=== PATIENT | female | born 1985 | race Caucasian/White ===

== ENCOUNTER 2019-03-11 14:48 | Emergency (ER) | payer OTHER ==
--- NOTE | 2019-03-11 17:33 | Ultrasound Report ---
Reason: 5.5 weeks preg vag bleed Procedure Date: 03/11/2019 Accession Number: [id number] / [id number] Procedure: US - OB First Trimester CPT Code: FULL RESULT: EXAM: FIRST TRIMESTER OBSTETRIC ULTRASOUND (Less than 11 weeks) EXAM DATE: 03/11/2019 05:10 PM. CLINICAL HISTORY: Vaginal bleeding LMP: 01/30/2019. COMPARISONS: None. TECHNIQUE: Transabdominal and transvaginal ultrasound examination with static image documentation. CLINICAL DATES: EGA 5 weeks 5 days with ALBERTINA 11/06/2019 based on LMP. ASSESSMENT: Gestational Sac: Single intrauterine. Mean gestational sac diameter: 12.4 mm = 5 weeks 2 days. pole not yet seen. Cardiac activity not yet seen. Yolk sac: 3.3 mm. Amniotic fluid: Not accurately assessed at this gestational age. Early placenta: Not visible at this gestational age. Other: No perigestational fluid collection demonstrated. MATERNAL STRUCTURES: Uterus: Anteverted. Unremarkable. Cervix: Closed. Right Ovary/Adnexa: The ovary measures 4.4 x 2.1 x 3.3 cm, volume 15.3 cc. Unremarkable. Corpus luteum cyst. Left Ovary/Adnexa: The ovary measures 3.2 x 2.6 x 1.5 cm, volume 6.5 cc. Unremarkable. Free Fluid: None. Other: None. IMPRESSION: 1. Single intrauterine gestational sac with an identifiable yolk sac. A pole and cardiac activity are not yet seen. Suggest follow-up ultrasound in 7-10 days for reassessment of viability. RADIA
[2019-03-11 17:56] LABS: BASOPHILS # (AUTO) 0.1 10^3/uL (0.0-0.1); BASOPHILS % (AUTO) 1.5 %; EOSINOPHILS # (AUTO) 0.1 10^3/uL (0.0-0.7); EOSINOPHILS % (AUTO) 1.7 %; LYMPHOCYTES # (AUTO) 1.2 10^3/uL (1.5-3.5); LYMPHOCYTES % (AUTO) 21.6 %; MEAN CORPUSCULAR HEMOGLOBIN 29.7 pg (27.0-31.0); MEAN CORPUSCULAR VOLUME 89.9 fL (81.0-99.0); MEAN PLATELET VOLUME 8.2 fL (7.9-10.8); MONOCYTES # (AUTO) 0.3 10^3/uL (0.0-1.0); MONOCYTES % (AUTO) 4.7 %; NEUTROPHILS # (AUTO) 3.9 10^3/uL (1.5-6.6); NEUTROPHILS % (AUTO) 70.5 %; PLT - PLATELET COUNT 195 10^3/uL (130-450); RED BLOOD COUNT 5.05 10^6/uL (4.20-5.40); RED CELL DISTRIBUTION WIDTH 13.1 % (12.0-15.0); WHITE BLOOD COUNT 5.5 x10^3/uL (4.8-10.8)
[2019-03-11 18:00] LABS: HCG UR QUAL POSITIVE
--- NOTE | 2019-03-11 18:09 | ED Physician Documentation ---
PD HPI FEMALE - Stated complaint Stated Complaint: FEMALE /SENT BY - Chief complaint Chief Complaint: General - History obtained from History obtained from: Patient - History of Present Illness Timing - onset: Today Timing - duration: Days (1) Pain level max: 0 Pain level max: 0 Associated symptoms: Vaginal bleeding. 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 History: G (2), P (0) Recently seen: Not recently seen Review of Systems Constitutional: denies: Fever GI: denies: Vomiting, Diarrhea Skin: denies: Rash Musculoskeletal: denies: Neck pain, Back pain Neurologic: denies: Headache PD PAST MEDICAL HISTORY - Past Medical History Past Medical History: No - Allergies Allergies/Adverse Reactions: Allergies Allergy/AdvReac Type Severity Reaction Status Date / Time No Known Drug Allergies Allergy Verified 03/11/19 15:33 - Living Situation Living Arrangement: reports: At home - Social History Does the pt smoke?: No Does the pt have substance abuse?: No PD ED PE NORMAL - Vitals Vital signs reviewed: Yes - General General: Alert and oriented X 3, No acute distress, Well developed/nourished - HEENT HEENT: Moist mucous membranes - Neck Neck: Supple, no meningeal sign - Cardiac Cardiac: RRR - Respiratory Respiratory: No respiratory distress, Clear bilaterally - Abdomen Abdomen: Soft, Non tender, Non distended - Back Back: No CVA TTP - Derm Derm: Warm and dry - Neuro Neuro: Alert and oriented X 3 - Psych Psych: Normal mood, Normal affect Results - Vitals Vitals: Vital Signs - 24 hr 03/11/19 03/11/19 15:29 19:05 Temperature 36.6 C Heart Rate 77 82 Respiratory 16 16 Rate Blood Pressure 103/66 130/75 O2 Saturation 100 100 Oxygen O2 Source Room air - Labs Labs: Laboratory Tests 03/11/19 03/11/19 03/11/19 17:40 17:40 17:50 WBC 5.5 RBC 5.05 Hgb 15.0 Hct 45.4 MCV 89.9 MCH 29.7 MCHC 33.0 RDW 13.1 Plt Count 195 MPV 8.2 Neut # (Auto) 3.9 Lymph # (Auto) 1.2 L Story # (Auto) 0.3 Eos # (Auto) 0.1 Baso # (Auto) 0.1 Absolute Nucleated RBC 0.00 Nucleated RBC % 0.0 Sodium Potassium Chloride Carbon Dioxide Anion Gap BUN Creatinine Estimated GFR (MDRD) Glucose Calcium Total Bilirubin AST ALT Alkaline Phosphatase Total Protein Albumin Globulin Albumin/Globulin Ratio Lipase HCG, Quant Urine Color YELLOW Urine Clarity CLEAR Urine pH 5.5 Ur Specific [place] 1.010 1.010 Urine Protein NEGATIVE Urine Glucose (UA) NEGATIVE Urine Ketones NEGATIVE Urine Occult Blood LARGE H Urine Nitrite NEGATIVE Urine Bilirubin NEGATIVE Urine Urobilinogen 0.2 (NORMAL) Ur Leukocyte Esterase NEGATIVE Urine RBC 0-5 Urine WBC 0-3 Ur Squamous Epith Cells MOD Squamous H Urine Bacteria None Seen Ur Microscopic Review INDICATED Urine Culture Comments NOT INDICATED Urine HCG, Qual POSITIVE 03/11/19 03/11/19 17:50 17:50 WBC RBC Hgb Hct MCV MCH MCHC RDW Plt Count MPV Neut # (Auto) Lymph # (Auto) Story # (Auto) Eos # (Auto) Baso # (Auto) Absolute Nucleated RBC Nucleated RBC % Sodium 137 Potassium 3.7 Chloride 102 Carbon Dioxide 24 Anion Gap 11.0 BUN 9 Creatinine 0.6 Estimated GFR (MDRD) 115 Glucose 92 Calcium 9.2 Total Bilirubin 0.6 AST 16 ALT 14 Alkaline Phosphatase 40 L Total Protein 7.4 Albumin 4.5 Globulin 2.9 Albumin/Globulin Ratio 1.6 Lipase 48 HCG, Quant 05723.00 Urine Color Urine Clarity Urine pH Ur Specific [place] Urine Protein Urine Glucose (UA) Urine Ketones Urine Occult Blood Urine Nitrite Urine Bilirubin Urine Urobilinogen Ur Leukocyte Esterase Urine RBC Urine WBC Ur Squamous Epith Cells Urine Bacteria Ur Microscopic Review Urine Culture Comments Urine HCG, Qual - Rads (name of study) OB ultrasound Radiology: Prelim report reviewed, EMP read contemporaneously, See rad report (Single intrauterine gestational sac with an identifiable yolk sac. pole and cardiac activity are not seen. Suggest follow-up ultrasound in 7 to 10 days for reassessment of viability.) PD MEDICAL DECISION MAKING - ED course Complexity details: reviewed results, re-evaluated patient, considered differential, d/w patient ED course: 33-year-old female with a threatened . She is well-appearing, nontoxic. Afebrile. No acute lab abnormalities. We will follow-up with her doctor in approximately 3 days for repeat hCG. And likely repeat ultrasound in 7 to 10 days. Patient counseled regarding signs and symptoms for which I believe and urgent re-evaluation would be necessary. Patient with good understanding of and agreement to plan and is comfortable going home at this time This document was made in part using voice recognition software. While efforts are made to proofread this document, sound alike and grammatical errors may occur. Departure - Departure Disposition: 01 Home, Self Care Clinical Impression: Threatened Condition: Good Instructions: ED Miscarriage Poss Follow-Up: your,doctor in 3 days for repeat HCG [Other] Comments: Follow-up with your doctor in 3 days for repeat hCG. Your hCG is approximately 32,000 today. This will help us know if you are miscarrying or not. Forms: Activity restrictions Discharge Date/Time: 03/11/19 19:05
[2019-03-11 18:10] LABS: ALBUMIN 4.5 g/dL (3.2-5.5); ALBUMIN/GLOBULIN RATIO 1.6 (1.0-2.2); BILIRUBIN,TOTAL 0.6 mg/dL (0.2-1.0); CALCIUM 9.2 mg/dL (8.5-10.3); CREATININE 0.6 mg/dL (0.4-1.0); TOTAL PROTEIN 7.4 g/dL (6.7-8.2)
[2019-03-11 18:36] LABS: BILIRUBIN,URINE NEGATIVE (NEGATIVE); GLUCOSE, URINE (UA) NEGATIVE (NEGATIVE); KETONES,URINE (UA) NEGATIVE (NEGATIVE); LEUKOCYTE ESTERASE, URINE NEGATIVE (NEGATIVE); NITRITE,URINE NEGATIVE (NEGATIVE); OCCULT BLOOD,URINE LARGE (NEGATIVE); PH,URINE 5.5 PH (5.0-7.5); PROTEIN,URINE NEGATIVE (NEGATIVE); UROBILINOGEN,URINE 0.2 (NORMAL) E.U./dL (NORMAL)
[2019-03-11 18:37] LABS: CLARITY,URINE CLEAR (CLEAR)
[2019-03-11 18:40] LABS: BACTERIA,URINE None Seen /HPF (None Seen); RBC,URINE 0-5 /HPF (0-5); SQUAMOUS EPITHELIAL CELL,UR MOD Squamous (<= Few)
[2019-03-11 19:05] VITALS: BP 130/75
== END 2019-03-11 19:05 | disposition home or self-care (01) ==
LOC: ED 14:48
DX: O20.0 Threatened abortion (principal); Z3A.01 Less than 8 weeks gestation of pregnancy
CPT/HCPCS: 36415; 76801; 76817; 80053; 81001; 81003; 81025; 83690; 84702; 85025; 86900; 86901; 87086; 99283

== ENCOUNTER 2019-03-14 12:31 | Outpatient (CLI) | payer OTHER | END 2019-03-14 12:32 | disposition home or self-care (01) | LOC: LAB 12:31 | PROVIDERS: ATTEND Nurse Practitioner Obstetrics & Gynecology | DX: O20.0 Threatened abortion (principal) | CPT/HCPCS: 84702 ==

== ENCOUNTER 2019-03-18 10:37 | Outpatient (CLI) | payer OTHER ==
[2019-03-18 11:17] LABS: MUDS CUTOFF CONCENTRATIONS CUTOFF CONC BELOW:
[2019-03-18 11:26] LABS: BASOPHILS % (AUTO) 0.6 %; EOSINOPHILS # (AUTO) 0.1 10^3/uL (0.0-0.7); EOSINOPHILS % (AUTO) 1.4 %; LYMPHOCYTES % (AUTO) 21.3 %; MEAN CORPUSCULAR HEMOGLOBIN 29.7 pg (27.0-31.0); MEAN CORPUSCULAR HGB CONC 33.1 g/dL (32.0-36.0); MEAN CORPUSCULAR VOLUME 89.9 fL (81.0-99.0); MEAN PLATELET VOLUME 8.5 fL (7.9-10.8); MONOCYTES # (AUTO) 0.3 10^3/uL (0.0-1.0); MONOCYTES % (AUTO) 6.8 %; NEUTROPHILS # (AUTO) 3.4 10^3/uL (1.5-6.6); NEUTROPHILS % (AUTO) 69.9 %; PLT - PLATELET COUNT 171 10^3/uL (130-450); RED BLOOD COUNT 4.72 10^6/uL (4.20-5.40); RED CELL DISTRIBUTION WIDTH 13.5 % (12.0-15.0); WHITE BLOOD COUNT 4.9 x10^3/uL (4.8-10.8)
[2019-03-18 12:16] LABS: BILIRUBIN,URINE NEGATIVE (NEGATIVE); GLUCOSE, URINE (UA) NEGATIVE (NEGATIVE); KETONES,URINE (UA) NEGATIVE (NEGATIVE); LEUKOCYTE ESTERASE, URINE NEGATIVE (NEGATIVE); NITRITE,URINE NEGATIVE (NEGATIVE); OCCULT BLOOD,URINE NEGATIVE (NEGATIVE); PH,URINE 6.5 PH (5.0-7.5); PROTEIN,URINE NEGATIVE (NEGATIVE); UROBILINOGEN,URINE 0.2 (NORMAL) E.U./dL (NORMAL)
[2019-03-18 12:18] LABS: CLARITY,URINE CLEAR (CLEAR)
[2019-03-18 12:22] LABS: RBC,URINE None Seen /HPF (0-5); SQUAMOUS EPITHELIAL CELL,UR MOD Squamous (<= Few)
[2019-03-18 12:23] LABS: BACTERIA,URINE Few /HPF (None Seen)
[2019-03-18 12:26] LABS: AMPHETAMINE SCREEN,URINE NEGATIVE (NEGATIVE); BENZODIAZEPINES SCREEN, URINE NEGATIVE (NEGATIVE); COCAINE SCREEN URINE NEGATIVE (NEGATIVE); METHADONE SCREEN, URINE NEGATIVE (NEGATIVE); METHAMPHETAMINES SCREEN, URINE NEGATIVE (NEGATIVE); OPIATE SCREEN, URINE NEGATIVE (NEGATIVE); OXYCODONE SCREEN, URINE NEGATIVE (NEGATIVE); PROPOXYPHENE SCREEN, URINE NEGATIVE (NEGATIVE); TRICYCLIC ANTIDEPRESSANT,URINE NEGATIVE (NEGATIVE)
[2019-03-19 13:11] LABS: HEPATITIS B SURFACE ANTIGEN NON-REACTIVE (NON-REACTIVE)
[2019-03-19 13:12] LABS: HEPATITIS C ANTIBODY NON-REACTIVE (NON-REACTIVE)
[2019-03-19 14:15] LABS: HIV AG/AB 4TH GEN NON-REACTIVE (NON-REACTIVE)
== END 2019-03-18 10:38 | disposition home or self-care (01) ==
LOC: LAB 10:37
PROVIDERS: ATTEND Obstetrics & Gynecology
DX: Z34.01 Encounter for supervision of normal first pregnancy, first trimester (principal)
CPT/HCPCS: 36415; 80306; 81001; 81599; 85025; 86762; 86803; 86850; 86900; 86901; 87086; 87340; 87389

== ENCOUNTER 2019-03-19 08:00 | Outpatient (CLI) | payer OTHER | END 2019-03-19 23:59 | disposition home or self-care (01) | LOC: LAB.R 08:00 | PROVIDERS: ATTEND Obstetrics & Gynecology | DX: Z34.01 Encounter for supervision of normal first pregnancy, first trimester (principal) | CPT/HCPCS: 87491; 87591 ==

== ENCOUNTER 2019-03-27 09:02 | Outpatient (CLI) | payer OTHER ==
--- NOTE | 2019-03-29 00:55 | Ultrasound Report ---
Reason: SUPERVISION OF NORMAL 1ST , 1ST TRIMESTER Procedure Date: 03/27/2019 Accession Number: [id number] / [id number] Procedure: US - OB First Trimester CPT Code: FULL RESULT: EXAM: FIRST TRIMESTER OBSTETRIC ULTRASOUND (Less than 11 weeks) EXAM DATE: 03/27/2019 09:28 AM. CLINICAL HISTORY: SUPERVISION OF NORMAL 1ST , 1ST TRIMESTER. LMP: 01/29/2019. COMPARISONS: OB FIRST TRIMESTER 03/11/2019 4:20 PM. TECHNIQUE: Transabdominal and transvaginal ultrasound examination with static image documentation. CLINICAL DATES: EGA 8 weeks 0 days with ALBERTINA 11/06/2019 based on LMP. ASSESSMENT: Gestational Sac: Single intrauterine. Embryo: CRL (crown-rump length) 16.1 mm = 7 weeks 6 days. Cardiac activity: 163 beats per minute. Yolk sac: 4.1 mm. Amniotic fluid: Not accurately assessed at this gestational age. Early placenta: Not visible at this gestational age. Other: 0.8 x 0.4 x 0.7 cm perigestational fluid collection, likely a tiny implantation hemorrhage.. MATERNAL STRUCTURES: Uterus: Anteverted. Unremarkable. Cervix: Closed. Bilateral ovaries appear unremarkable. Free Fluid: None. Other: None. IMPRESSION: 1. Single viable intrauterine at EGA 9 weeks 0 days with ALBERTINA 11/07/2019 based on crown-rump length, which is concordant with clinical dates. RADIA
== END 2019-03-27 09:03 | disposition home or self-care (01) ==
LOC: DI 09:02
PROVIDERS: ATTEND Obstetrics & Gynecology
DX: Z34.01 Encounter for supervision of normal first pregnancy, first trimester (principal)
CPT/HCPCS: 76801

== ENCOUNTER 2019-05-14 09:55 | Outpatient (CLI) | payer OTHER ==
[2019-05-14 11:34] LABS: THYROID STIMULATING HORMONE 2.63 uIU/mL (0.34-5.60)
[2019-05-14 11:36] LABS: FREE T4 (FREE THYROXINE) 0.73 ng/dL (0.58-1.64)
== END 2019-05-14 09:56 | disposition home or self-care (01) ==
LOC: LAB 09:55
PROVIDERS: ATTEND Obstetrics & Gynecology
DX: O09.91 Supervision of high risk pregnancy, unspecified, first trimester (principal); R00.2 Palpitations; O99.281 Endocrine, nutritional and metabolic diseases complicating pregnancy, first trimester; E53.8 Deficiency of other specified B group vitamins; O99.611 Diseases of the digestive system complicating pregnancy, first trimester; K51.90 Ulcerative colitis, unspecified, without complications
CPT/HCPCS: 36415; 83921; 84439; 84443

== ENCOUNTER 2019-05-25 19:06 | Outpatient (CLI) | payer OTHER ==
[2019-05-25 19:41] LABS: ALBUMIN 3.5 g/dL (3.2-5.5); ALBUMIN/GLOBULIN RATIO 1.1 (1.0-2.2); ALKALINE PHOSPHATASE 35 IU/L (42-121); ALT ALANINE AMINOTRANSFERASE 16 IU/L (10-60); AST ASPARTATE AMINOTRANSFERASE 18 IU/L (10-42); BILIRUBIN,TOTAL 0.2 mg/dL (0.2-1.0); BUN - BLOOD UREA NITROGEN 11 mg/dL (6-20); CALCIUM 9.1 mg/dL (8.5-10.3); CARBON DIOXIDE - CO2 24 mmol/L (21-32); CHLORIDE 105 mmol/L (101-111); CREATININE 0.5 mg/dL (0.4-1.0); GFR - MDRD 142 (>89); GLUCOSE 86 mg/dL (70-100); SODIUM 139 mmol/L (135-145); TOTAL PROTEIN 6.6 g/dL (6.7-8.2)
[2019-05-25 19:57] LABS: BILIRUBIN,DIRECT < 0.1 mg/dL (0.1-0.5)
[2019-05-29 16:31] LABS: CHENODEOXYCHOLIC ACID 0.8 umol/L (< OR = 3.1); CHOLIC ACID 1.1 umol/L (< OR = 1.8); DEOXYCHOLIC ACID <0.5 umol/L (< OR = 2.4)
== END 2019-05-25 19:07 | disposition home or self-care (01) ==
LOC: LAB 19:06
PROVIDERS: ATTEND Obstetrics & Gynecology
DX: O26.619 Liver and biliary tract disorders in pregnancy, unspecified trimester (principal)
CPT/HCPCS: 36415; 80053; 80076; 82248; 82542

== ENCOUNTER 2019-07-03 13:21 | Outpatient (CLI) | payer OTHER | END 2019-07-03 13:22 | disposition home or self-care (01) | LOC: LAB 13:21 | PROVIDERS: ATTEND Obstetrics & Gynecology | DX: O09.91 Supervision of high risk pregnancy, unspecified, first trimester (principal) | CPT/HCPCS: 36415; 81511; 81599 ==

== ENCOUNTER 2019-11-07 23:59 | Outpatient (CLI) | payer OTHER ==
[2019-11-08] MEDS ORDERED: SODIUM CHLORIDE FLUSH 0.9% 10 ML SYRINGE ONE (00:11)
[2019-11-08] MEDS ORDERED: BUFFERED LIDOCAINE 10 ML SYRINGE IU ONE (00:17)
[2019-11-08] MEDS ORDERED: fentaNYL 100 MCG/2 ML VIAL ONE (00:17)
[2019-11-08] MEDS ORDERED: LIDOCAINE-MPF 1% 30 ML VIAL ONE ×2 (00:19→00:53)
[2019-11-08] MEDS ORDERED: PROMETHAZINE 25 MG/1 ML VIAL ONE (00:21)
[2019-11-08] MEDS: LACTATED RINGERS 1,000 ML IV SCH ×2 (00:28→01:45)
[2019-11-08 00:29] LABS: BASOPHILS # (AUTO) 0.1 10^3/uL (0.0-0.1); BASOPHILS % (AUTO) 0.3 %; EOSINOPHILS # (AUTO) 0.1 10^3/uL (0.0-0.7); EOSINOPHILS % (AUTO) 0.4 %; HGB - HEMOGLOBIN 10.6 g/dL (12.0-16.0); LYMPHOCYTES # (AUTO) 0.6 10^3/uL (1.5-3.5); LYMPHOCYTES % (AUTO) 3.5 %; MEAN CORPUSCULAR HEMOGLOBIN 29.2 pg (27.0-31.0); MEAN CORPUSCULAR HGB CONC 32.4 g/dL (32.0-36.0); MEAN CORPUSCULAR VOLUME 90.1 fL (81.0-99.0); MEAN PLATELET VOLUME 11.2 fL (7.9-10.8); MONOCYTES # (AUTO) 0.7 10^3/uL (0.0-1.0); MONOCYTES % (AUTO) 3.8 %; NEUTROPHILS # (AUTO) 16.3 10^3/uL (1.5-6.6); NEUTROPHILS % (AUTO) 91.3 %; PLT - PLATELET COUNT 175 10^3/uL (130-450); RED BLOOD COUNT 3.63 10^6/uL (4.20-5.40); RED CELL DISTRIBUTION WIDTH 16.5 % (12.0-15.0); WHITE BLOOD COUNT 17.9 x10^3/uL (4.8-10.8)
--- NOTE | 2019-11-08 00:29 | PROVIDER PROGRESS NOTE ---
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 CNM reports EBL of 700cc. Pt with moderate pain on arrival. complicated by anemia; last hgb 10/01 10.5 Meds/ vits and iron Allergies/ None Past surg/ Diaphragmatic hernia repair remote past PMH/ Ulcerative colitis; last flair 2017 ROS/ No n/v/f/c. Pain as noted locally. Otherwise negative. PE/ Normal appearance somewhat pale, well nourished RESP/ CTA CV/ RRR significant tachycardia 140's, 3/6 systolic murmur along LSB ABD/ Soft, non-tender. Fundus firm at umbilicus EXTR/ without edema, warm, dry) - Exam Moderate perineal and vaginal mucosal edema. Grade 3A laceration. Cervix and rectum intact. Repaired with 0 and 2-0 vicryl in layers in usual fashion without complication. Pudendal block done with 30cc 1% lidocaine no epi. An additional 7cc was given into perineal skin. She was also given fentanyl and phenergan for sedation and tolerated the procedure very well. - Procedures Findings: Grade 3A laceration repaired. IV hydration with 2liters LR resolved tachycardia. CBC noted. Expected leukocytosis and hgb 10.6 (prior to hydration) Plan observation for 1-2 hours. Consider DC home when stable. - Plan Plan: Instructions for postop/ care given Continue oral iron as she is tolerating it, but hold it for 1-2 weeks to avoid constipation.
[2019-11-08] MEDS ORDERED: LACTATED RINGERS 500 ML IV ONE (00:36)
[2019-11-08] MEDS ORDERED: LIDOCAINE 1% 50 ML MDV TD ONE (00:58)
[2019-11-08] MEDS ORDERED: fentaNYL 100 MCG/2 ML VIAL IVP SCH (01:00)
[2019-11-08] MEDS ORDERED: PROMETHAZINE INJ 25 MG in SODIUM CHLORIDE 0.9% 50 ML IV SCH (01:00)
[2019-11-08] MEDS ORDERED: ACETAMINOPHEN 500 MG TABLET PO SCH (02:00)
[2019-11-08] MEDS ORDERED: WITCH HAZEL/GLYCERIN 1 PAD TOP PRN (02:06)
--- NOTE | 2019-11-08 02:10 | PROVIDER PROGRESS NOTE ---
Subjective - Prog Note Date Prog Note Date: 11/08/19 Prog Note Time: 02:08 - Subjective Subjective: Comfortable. Up with help to BR. Voided nearly 1000cc. VSS pulse 98. BP 112/74 No active bleeding. Tylenol for pain. Continue obs. and current liter of fluid. Objective - Vital Signs/Intake & Output Intake & Output: Intake & Output 11/05/19 11/06/19 11/07/19 11/08/19 23:59 23:59 23:59 23:59 Intake Total 1000 Balance 1000 - Lab Results Fish Bones: 11/08/19 00:18 Other Labs: Lab Results x24hrs 11/08/19 11/08/19 Range/Units 00:18 00:18 WBC 17.9 H (4.8-10.8) x10^3/uL RBC 3.63 L (4.20-5.40) 10^6/uL Hgb 10.6 L (12.0-16.0) g/dL Hct 32.7 L (37.0-47.0) % MCV 90.1 (81.0-99.0) fL MCH 29.2 (27.0-31.0) pg MCHC 32.4 (32.0-36.0) g/dL RDW 16.5 H (12.0-15.0) % Plt Count 175 (130-450) 10^3/uL MPV 11.2 H (7.9-10.8) fL Neut # (Auto) 16.3 H (1.5-6.6) 10^3/uL Lymph # (Auto) 0.6 L (1.5-3.5) 10^3/uL [place] # (Auto) 0.7 (0.0-1.0) 10^3/uL Eos # (Auto) 0.1 (0.0-0.7) 10^3/uL Baso # (Auto) 0.1 (0.0-0.1) 10^3/uL Absolute Nucleated RBC 0.00 x10^3/uL Nucleated RBC % 0.0 /100WBC Blood Type B POSITIVE Antibody Screen NEGATIVE
--- NOTE | 2019-11-08 07:11 | PROVIDER PROGRESS NOTE ---
Subjective - Prog Note Date Prog Note Date: 11/08/19 Prog Note Time: 07:10 - Subjective Subjective: Feeling shaky. Pain controlled. . Normal lochia BP 107/57 P 86 Temp 37.5 O2 sat 97% RA Abd soft, non-tender. Fundus firm at umbilicus Perineum intact, no increase in edema Hgb 8.8 A/P Vitals now stable, pulse last few hours in 80's. Iron deficit for target hemoglobin of 13.0 is 1375mg. Will order. Continue to observe. Likely DC home aung this morning. Objective - Vital Signs/Intake & Output Vital Signs: Vital Signs x48h Temp Pulse Resp BP Pulse Ox 11/08/19 06:01 99.5 F 86 16 107/57 L 97 11/08/19 02:20 98.4 F 87 18 121/67 98 11/08/19 01:45 98 18 112/67 11/08/19 01:30 95 18 121/65 99 11/08/19 01:16 99 18 125/72 11/08/19 01:00 96 18 131/81 H 99 11/08/19 00:45 109 H 18 104/75 99 11/08/19 00:32 156 H 20 99/82 H 99 11/08/19 00:26 122 H 20 104/61 99 11/08/19 00:10 98.8 F 117 H 20 124/71 100 Intake & Output: Intake & Output 11/05/19 11/06/19 11/07/19 11/08/19 23:59 23:59 23:59 23:59 Intake Total 2051 Output Total 900 Balance 1151 - Lab Results Fish Bones: 11/08/19 05:10 Other Labs: Lab Results x24hrs 11/08/19 11/08/19 11/08/19 Range/Units 05:10 00:18 00:18 WBC 17.9 H (4.8-10.8) x10^3/uL RBC 3.63 L (4.20-5.40) 10^6/uL Hgb 8.8 L 10.6 L (12.0-16.0) g/dL Hct 32.7 L (37.0-47.0) % MCV 90.1 (81.0-99.0) fL MCH 29.2 (27.0-31.0) pg MCHC 32.4 (32.0-36.0) g/dL RDW 16.5 H (12.0-15.0) % Plt Count 175 (130-450) 10^3/uL MPV 11.2 H (7.9-10.8) fL Neut # (Auto) 16.3 H (1.5-6.6) 10^3/uL Lymph # (Auto) 0.6 L (1.5-3.5) 10^3/uL [place] # (Auto) 0.7 (0.0-1.0) 10^3/uL Eos # (Auto) 0.1 (0.0-0.7) 10^3/uL Baso # (Auto) 0.1 (0.0-0.1) 10^3/uL Absolute Nucleated RBC 0.00 x10^3/uL Nucleated RBC % 0.0 /100WBC Blood Type B POSITIVE Antibody Screen NEGATIVE
[2019-11-08] MEDS ORDERED: IRON DEXTRAN 25 MG in SODIUM CHLORIDE 0.9% 50 ML IV ONE (08:00)
[2019-11-08 08:15] VITALS: BP 106/54
[2019-11-08] MEDS ORDERED: IRON DEXTRAN IV ONE (08:30)
[2019-11-08] MEDS ORDERED: SODIUM CHLORIDE 0.9% IV ONE (08:30)
--- NOTE | 2019-11-08 08:54 | PROVIDER PROGRESS NOTE ---
Subjective - Prog Note Date Prog Note Date: 11/08/19 Prog Note Time: 08:53 - Subjective Subjective: Receiving IV iron. Plan DC home when infusion complete. Objective - Vital Signs/Intake & Output Vital Signs: Vital Signs x48h Temp Pulse Resp BP Pulse Ox 11/08/19 08:14 89 16 106/54 L 99 11/08/19 08:00 99.1 F 90 16 105/58 L 99 11/08/19 06:01 99.5 F 86 16 107/57 L 97 11/08/19 02:20 98.4 F 87 18 121/67 98 11/08/19 01:45 98 18 112/67 11/08/19 01:30 95 18 121/65 99 11/08/19 01:16 99 18 125/72 11/08/19 01:00 96 18 131/81 H 99 Intake & Output: Intake & Output 11/05/19 11/06/19 11/07/19 11/08/19 23:59 23:59 23:59 23:59 Intake Total 2051 Output Total 900 Balance 1151 - Lab Results Fish Bones: 11/08/19 05:10 Other Labs: Lab Results x24hrs 11/08/19 11/08/19 11/08/19 Range/Units 05:10 00:18 00:18 WBC 17.9 H (4.8-10.8) x10^3/uL RBC 3.63 L (4.20-5.40) 10^6/uL Hgb 8.8 L 10.6 L (12.0-16.0) g/dL Hct 32.7 L (37.0-47.0) % MCV 90.1 (81.0-99.0) fL MCH 29.2 (27.0-31.0) pg MCHC 32.4 (32.0-36.0) g/dL RDW 16.5 H (12.0-15.0) % Plt Count 175 (130-450) 10^3/uL MPV 11.2 H (7.9-10.8) fL Neut # (Auto) 16.3 H (1.5-6.6) 10^3/uL Lymph # (Auto) 0.6 L (1.5-3.5) 10^3/uL [place] # (Auto) 0.7 (0.0-1.0) 10^3/uL Eos # (Auto) 0.1 (0.0-0.7) 10^3/uL Baso # (Auto) 0.1 (0.0-0.1) 10^3/uL Absolute Nucleated RBC 0.00 x10^3/uL Nucleated RBC % 0.0 /100WBC Blood Type B POSITIVE Antibody Screen NEGATIVE
== END 2019-11-08 13:10 | disposition home or self-care (01) ==
LOC: WFO 23:59 → FBP 11-08 → WFO 11-08 13:10
PROVIDERS: ATTEND Obstetrics & Gynecology
DX: O70.21 Third degree perineal laceration during delivery, IIIa (principal); O90.81 Anemia of the puerperium; D62 Acute posthemorrhagic anemia
CPT/HCPCS: 36415; 59300; 85018; 85025; 86850; 86900; 86901; 96361; 96365; 96366; 96367; 96375; A9270; J1750; J7040; J7120

== ENCOUNTER 2019-11-13 16:14 | Outpatient (CLI) | payer OTHER ==
[2019-11-13 16:40] VITALS: BP 117/84
[2019-11-13] MEDS ORDERED: MORPHINE 10 MG/ML VIAL IM ONE (17:12)
[2019-11-13] MEDS ORDERED: PROMETHAZINE 25 MG/1 ML VIAL IM STA (17:17)
--- NOTE | 2019-11-13 17:39 | PROVIDER PROGRESS NOTE ---
- HPI Chief Complaint: Other Current : Vital Signs Temperature 98.2 F 11/13/19 16:34 Heart Rate 95 11/13/19 16:34 Respiratory Rate 20 11/13/19 16:34 Blood Pressure 117/84 H 11/13/19 16:34 O2 Saturation 100 11/13/19 16:34 Temperature 98.2 F 11/13/19 16:34 Heart Rate 95 11/13/19 16:34 Respiratory Rate 20 11/13/19 16:34 Blood Pressure 117/84 H 11/13/19 16:34 O2 Saturation 100 11/13/19 16:34 - Exam 33yo s/p home complicated by PPH and third degree laceration on 11/07 and brought here for further evaluation and care. The laceration was repaired and she was hydrated and given IV iron following the PPH which was stable by the time of admission. She presents with progressive perineal pain over the past 2 days. Pain was "bearable" prior to that. She denies n/v/f/c or dysuria. Reports scant bleeding. No difficulty with bladder or bowel function. Denies intercourse, douching etc. Pt reports taking 325-650mg tylenol every 8 hours with 400mg motrin. No other meds. - Procedures Findings: Minimal edema, no erythema, no drainage or pus. No masses. Repair completely intact. Diffusely tender. - Plan Plan: A/P PPD 5 s/p repair of third degree laceration. No evidence of infection or breakdown of repair. Inadequate pain management. Counselled re appropriate dosing. Also encouraged to add percocet for additional pain relief. Plan morphine and phenergan now. DC home with percocet. Continue tylenol 650- 1000mg q8 and NSAIDs Follow up as scheduled.
[2019-11-13] MEDS ORDERED: LIDOCAINE/PRILOCAINE 2.5% CREAM 5 GM TUBE TOP ONE (18:08)
== END 2019-11-13 18:45 | disposition home or self-care (01) ==
LOC: WFO 16:14 → FBP 16:21 → WFO 18:45
PROVIDERS: ATTEND Obstetrics & Gynecology
DX: O90.89 Other complications of the puerperium, not elsewhere classified (principal); G89.18 Other acute postprocedural pain; R10.2 Pelvic and perineal pain
CPT/HCPCS: 96372; J3490

== ENCOUNTER 2020-07-05 07:00 | Outpatient (CLI) | payer OTHER | END 2020-07-05 23:59 | disposition home or self-care (01) | LOC: LAB.R 07:00 | PROVIDERS: ATTEND Internal Medicine | DX: K51.019 Ulcerative (chronic) pancolitis with unspecified complications (principal) | CPT/HCPCS: 83993 ==

== ENCOUNTER 2020-11-04 08:00 | Outpatient (CLI) | payer OTHER ==
--- NOTE | 2020-11-04 16:57 | XRAY Report ---
PROCEDURE: Ankle 3 View RT INDICATIONS: SPRAIN OF LIGAMENT OF RIGHT ANKLE TECHNIQUE: 3 views of the ankle were acquired. COMPARISON: None available FINDINGS: Bones: No fractures or dislocations. Ankle mortise is normally aligned. No suspicious bony lesions . The talar dome demonstrates an unremarkable appearance. Soft tissues: No tibiotalar joint effusion. Achilles tendon appears normal. IMPRESSION: Normal ankle plain films. Reviewed by: Javier Moncada MD on 11/04/2020 3:56 PM [place] Approved by: Javier Moncada MD on 11/04/2020 3:56 PM [place] Station ID: [id number]
== END 2020-11-04 23:59 ==
LOC: DI.S 08:00
PROVIDERS: ATTEND Emergency Medicine
DX: S93.491A Sprain of other ligament of right ankle, initial encounter (principal)

== ENCOUNTER 2020-11-17 13:30 | Outpatient (CLI) | payer OTHER ==
[2020-11-17 20:54] LABS: BASOPHILS % (AUTO) 0.5 %; EOSINOPHILS # (AUTO) 0.1 10^3/uL (0.0-0.7); EOSINOPHILS % (AUTO) 1.7 %; HGB - HEMOGLOBIN 13.9 g/dL (12.0-16.0); LYMPHOCYTES # (AUTO) 1.7 10^3/uL (1.5-3.5); LYMPHOCYTES % (AUTO) 30.2 %; MEAN CORPUSCULAR HEMOGLOBIN 28.7 pg (27.0-31.0); MEAN CORPUSCULAR HGB CONC 31.8 g/dL (32.0-36.0); MEAN CORPUSCULAR VOLUME 90.3 fL (81.0-99.0); MEAN PLATELET VOLUME 10.1 fL (7.9-10.8); MONOCYTES # (AUTO) 0.3 10^3/uL (0.0-1.0); NEUTROPHILS # (AUTO) 3.6 10^3/uL (1.5-6.6); NEUTROPHILS % (AUTO) 62.4 %; PLT - PLATELET COUNT 199 10^3/uL (130-450); RED BLOOD COUNT 4.84 10^6/uL (4.20-5.40); RED CELL DISTRIBUTION WIDTH 12.7 % (12.0-15.0); WHITE BLOOD COUNT 5.8 x10^3/uL (4.8-10.8)
[2020-11-17 21:23] LABS: ALBUMIN 4.4 g/dL (3.2-5.5); ALBUMIN/GLOBULIN RATIO 1.8 (1.0-2.2); ALKALINE PHOSPHATASE 51 IU/L (42-121); ALT ALANINE AMINOTRANSFERASE 13 IU/L (10-60); AST ASPARTATE AMINOTRANSFERASE 18 IU/L (10-42); BILIRUBIN,TOTAL 0.6 mg/dL (0.2-1.0); BUN - BLOOD UREA NITROGEN 20 mg/dL (6-20); CARBON DIOXIDE - CO2 25 mmol/L (21-32); CHLORIDE 99 mmol/L (101-111); CREATININE 0.7 mg/dL (0.4-1.0); GLUCOSE 107 mg/dL (70-100); SODIUM 138 mmol/L (135-145); TOTAL PROTEIN 6.8 g/dL (6.7-8.2)
[2020-11-17 21:27] LABS: CRP - C-REACTIVE PROTEIN < 1.0 mg/dL (0-1.0)
--- OUTSIDE RECORDS SUMMARY | 2020-11-22 01:40 | EXTERNAL MEDICAL SUMMARY RPT | Continuity of Care Document ---
:1985 Demographics Phone Unavailable Preferred Language Grenadian Marital Status Unknown Restorationism Affiliation Unknown Race Unknown Ethnic Group Unknown Author Organization [place] Address [address] [phone] Phone Care Team Providers Name Role Phone Paige MUNOZ, Unavailable Unavailable Haydee Braxton Unavailable Unavailable Problems date description facility 2020-11-04 00:00:00 [facility] right [facility], initial encounter [facility] 2020-11-04 00:00[facility] 2020-11-04 00:00:00 Former smoker [facility] 2020-11-17 13:30 OTHER ULCERATIVE COLITIS WITH [facility] UNSPECIFIED COMPLICATIONS 2020-11-18 00:00 OTHER ULCERATIVE COLITIS WITH [facility] UNSPECIFIED COMPLICATIONS Allergies date description facility CAT HAIR EXTRACT [facility] NO KNOWN ALLERGIES [facility] No Known Drug Allergies [facility] LATEX [facility] PENICILLINS [facility] Medications date description facility 2020-11-04 00:00:00 null [facility] 2020-11-04 00:00:00 null [facility] 2020-11-04 00:00:00 BALSALAZIDE DISODIUM [facility] 2020-11-04 00:00:00 BALSALAZIDE DISODIUM [facility] Procedures date description facility 2020-11-04 00:00:00 [facility]le [facility] Views [facility] date description facility 2020-11-04 00:00:00 Alfredo Bandage [facility] date description facility 2020-11-04 00:00:00 [facility] Results Social History date description facility 2020-11-04 00:00:00 Former smoker [facility] Social History date description facility 2020-11-04 00:00:00 Former smoker [facility] date description facility [phone]
== END 2020-11-17 13:31 | disposition home or self-care (01) ==
LOC: LAB.S 13:30
PROVIDERS: ATTEND Internal Medicine
DX: K51.819 Other ulcerative colitis with unspecified complications (principal)
CPT/HCPCS: 36415; 80053; 83993; 85025; 86140; 87493

== ENCOUNTER 2020-11-18 08:00 | Outpatient (CLI) | payer OTHER | END 2020-11-18 23:59 | disposition home or self-care (01) | LOC: LAB.R 08:00 | PROVIDERS: ATTEND Internal Medicine | DX: K51.819 Other ulcerative colitis with unspecified complications (principal) | CPT/HCPCS: 83993 ==

== ENCOUNTER 2021-05-30 17:23 | Outpatient (CLI) | payer OTHER ==
[2021-05-30 19:41] LABS: BASOPHILS # (AUTO) 0.1 10^3/uL (0.0-0.1); BASOPHILS % (AUTO) 0.9 %; EOSINOPHILS # (AUTO) 0.3 10^3/uL (0.0-0.7); EOSINOPHILS % (AUTO) 4.9 %; HCT - HEMATOCRIT 43.8 % (37.0-47.0); HGB - HEMOGLOBIN 14.4 g/dL (12.0-16.0); LYMPHOCYTES # (AUTO) 2.2 10^3/uL (1.5-3.5); LYMPHOCYTES % (AUTO) 34.5 %; MEAN CORPUSCULAR HEMOGLOBIN 30.3 pg (27.0-31.0); MEAN CORPUSCULAR HGB CONC 32.9 g/dL (32.0-36.0); MEAN PLATELET VOLUME 10.2 fL (7.9-10.8); MONOCYTES # (AUTO) 0.4 10^3/uL (0.0-1.0); NEUTROPHILS # (AUTO) 3.4 10^3/uL (1.5-6.6); NEUTROPHILS % (AUTO) 53.4 %; PLT - PLATELET COUNT 232 10^3/uL (130-450); RED BLOOD COUNT 4.76 10^6/uL (4.20-5.40); RED CELL DISTRIBUTION WIDTH 11.9 % (12.0-15.0); WHITE BLOOD COUNT 6.4 x10^3/uL (4.8-10.8)
[2021-05-30 20:05] LABS: ALBUMIN 4.7 g/dL (3.2-5.5); ALBUMIN/GLOBULIN RATIO 1.7 (1.0-2.2); BILIRUBIN,TOTAL 0.6 mg/dL (0.2-1.0); CALCIUM 9.3 mg/dL (8.5-10.3); CREATININE 0.8 mg/dL (0.4-1.0); POTASSIUM 3.8 mmol/L (3.5-5.0); TOTAL PROTEIN 7.5 g/dL (6.7-8.2)
[2021-06-02 14:36] LABS: NIL 0.01 IU/mL; TB2-NIL 0.01 IU/mL
== END 2021-05-30 17:24 | disposition home or self-care (01) ==
LOC: LAB.S 17:23
PROVIDERS: ATTEND Internal Medicine
DX: K51.019 Ulcerative (chronic) pancolitis with unspecified complications (principal)
CPT/HCPCS: 36415; 80053; 85025; 86480; 86704

== ENCOUNTER 2021-07-19 09:53 | Outpatient (CLI) | payer OTHER ==
[2021-07-19 15:18] LABS: BASOPHILS # (AUTO) 0.1 10^3/uL (0.0-0.1); BASOPHILS % (AUTO) 1.1 %; EOSINOPHILS # (AUTO) 0.1 10^3/uL (0.0-0.7); EOSINOPHILS % (AUTO) 3.1 %; HCT - HEMATOCRIT 44.8 % (37.0-47.0); HGB - HEMOGLOBIN 15.5 g/dL (12.0-16.0); LYMPHOCYTES # (AUTO) 1.8 10^3/uL (1.5-3.5); LYMPHOCYTES % (AUTO) 39.9 %; MEAN CORPUSCULAR HEMOGLOBIN 30.8 pg (27.0-31.0); MEAN CORPUSCULAR HGB CONC 34.6 g/dL (32.0-36.0); MEAN CORPUSCULAR VOLUME 89.1 fL (81.0-99.0); MEAN PLATELET VOLUME 11.1 fL (7.9-10.8); MONOCYTES # (AUTO) 0.3 10^3/uL (0.0-1.0); MONOCYTES % (AUTO) 5.9 %; NEUTROPHILS # (AUTO) 2.3 10^3/uL (1.5-6.6); NEUTROPHILS % (AUTO) 49.8 %; PLT - PLATELET COUNT 145 10^3/uL (130-450); RED BLOOD COUNT 5.03 10^6/uL (4.20-5.40); RED CELL DISTRIBUTION WIDTH 12.1 % (12.0-15.0); WHITE BLOOD COUNT 4.6 x10^3/uL (4.8-10.8)
[2021-07-19 15:26] LABS: ALBUMIN 4.7 g/dL (3.2-5.5); ALBUMIN/GLOBULIN RATIO 1.4 (1.0-2.2); BILIRUBIN,TOTAL 0.7 mg/dL (0.2-1.0); CALCIUM 9.4 mg/dL (8.5-10.3); CREATININE 0.7 mg/dL (0.4-1.0); POTASSIUM 4.4 mmol/L (3.5-5.0)
== END 2021-07-19 23:59 | disposition home or self-care (01) ==
LOC: LAB.R 09:53
PROVIDERS: ATTEND Internal Medicine
DX: K51.019 Ulcerative (chronic) pancolitis with unspecified complications (principal)
CPT/HCPCS: 80053; 85025

== ENCOUNTER 2021-08-02 09:20 | Outpatient (CLI) | payer OTHER ==
[2021-08-02 14:50] LABS: BASOPHILS # (AUTO) 0.1 10^3/uL (0.0-0.1); BASOPHILS % (AUTO) 1.2 %; EOSINOPHILS # (AUTO) 0.3 10^3/uL (0.0-0.7); HCT - HEMATOCRIT 46.7 % (37.0-47.0); HGB - HEMOGLOBIN 15.9 g/dL (12.0-16.0); LYMPHOCYTES # (AUTO) 1.4 10^3/uL (1.5-3.5); LYMPHOCYTES % (AUTO) 27.8 %; MEAN CORPUSCULAR HEMOGLOBIN 30.6 pg (27.0-31.0); MEAN PLATELET VOLUME 11.5 fL (7.9-10.8); MONOCYTES # (AUTO) 0.5 10^3/uL (0.0-1.0); MONOCYTES % (AUTO) 9.7 %; NEUTROPHILS # (AUTO) 2.8 10^3/uL (1.5-6.6); NEUTROPHILS % (AUTO) 56.3 %; RED BLOOD COUNT 5.19 10^6/uL (4.20-5.40); RED CELL DISTRIBUTION WIDTH 12.2 % (12.0-15.0)
[2021-08-02 14:52] LABS: SLIDE REVIEW? Indicated
[2021-08-02 15:21] LABS: PLATELET ESTIMATE, MANUAL DECREASED (<130,000) (NORMAL); PLATELET MORPHOLOGY PLATELET CLUMPING (NORMAL); RBC MORPHOLOGY (MULTIPLE) NORMAL APPEARANCE (NORMAL); WBC MORPHOLOGY (MULTIPLE) NORMAL APPEARANCE (NORMAL)
== END 2021-08-02 09:21 | disposition home or self-care (01) ==
LOC: LAB.R 09:20
PROVIDERS: ATTEND Internal Medicine
DX: K51.019 Ulcerative (chronic) pancolitis with unspecified complications (principal)
CPT/HCPCS: 80053; 85025

== ENCOUNTER 2021-11-12 08:00 | Outpatient (CLI) | payer OTHER | END 2021-11-12 23:59 | LOC: LAB 08:00 | PROVIDERS: ATTEND Registered Nurse | DX: J34.89 Other specified disorders of nose and nasal sinuses (principal) | CPT/HCPCS: 87070; 87205 ==

== ENCOUNTER 2022-10-25 08:00 | Outpatient (CLI) | payer OTHER ==
[2022-10-25 23:20] LABS: BACTERIAL VAGINOSIS DNA NEGATIVE (NEGATIVE); CANDIDA GLABRATA DNA NEGATIVE (NEGATIVE); CANDIDA GROUP DNA NEGATIVE (NEGATIVE); CANDIDA KRUSEI DNA NEGATIVE (NEGATIVE); TRICHOMONAS VAGINALIS DNA NEGATIVE (NEGATIVE)
== END 2022-10-25 23:59 | disposition home or self-care (01) ==
LOC: LAB 08:00
PROVIDERS: ATTEND Obstetrics & Gynecology
DX: N76.0 Acute vaginitis (principal)
CPT/HCPCS: 81514

== ENCOUNTER 2022-11-21 07:53 | Outpatient (CLI) | payer OTHER ==
--- NOTE | 2022-11-22 12:50 | Mammography Report ---
BILATERAL DIGITAL DIAGNOSTIC MAMMOGRAM 3D/2D: 11/21/2022 CLINICAL: Baseline exam. Palpable right breast lump. No prior exams were available for comparison. Both breasts are extremely dense, which lowers the sensitivity of mammography (category d />75% gland ular tissue). No significant masses, calcifications, or other findings are seen in either breast. IMPRESSION: INCOMPLETE: NEEDS ADDITIONAL IMAGING EVALUATION No suspicious finding or mass demonstrated. Ultrasound will be performed. Based on Tyrer-Cuzick model (a risk assessment model), the patient's lifetime risk is 22.8% and her 1 0 year risk is 2.1%. If a patient has an elevated risk, a more comprehensive evaluation should be con sidered and/or a referral to a genetic counselor. The [place] [employer], [employer], and NCCN Guidelines advise the consideration of Breast MRI as an adjunct to screening mammog kaity in patients whose "Lifetime risk to develop breast cancer" is 20% or higher. This exam was interpreted at Station ID: [id number]. NOTE: For mammograms, a report in lay terms will be sent to the patient. Approximately 15% of breast malignancies will not be visualized mammographically. In the management of a palpable breast mass, a negative mammogram must not discourage biopsy of a clinically suspicious lesion. Electronically Signed By: Oliver Whitley M.D. jr/:11/21/2022 13:03:02 ACR BI-RADS Category 0: Incomplete 3340F PARENCHYMAL PATTERN: (VD) - The breast(s) demonstrate(s) extremely dense parenchyma, limiting the sen sitivity of mammography. BI-RADS CATEGORY: (0) - 0 Unspecified - other recall n/a LATERALITY: (B)
--- NOTE | 2022-11-22 12:50 | Ultrasound Report ---
LIMITED ULTRASOUND OF RIGHT BREAST: 11/21/2022 CLINICAL: Palpable right breast lump. Comparison is made to exam dated: 11/21/2022 mammogram - [facility]. Color flow and real-time ultrasound of the right breast retroareolar were performed. Mahan scale imag es of the real-time examination were reviewed. No significant abnormalities were seen sonographically in the right breast. IMPRESSION: NEGATIVE There is no sonographic evidence of malignancy. This exam was interpreted at Station ID: [id number]. Electronically Signed By: Oliver Whitley M.D., jr/jori:11/21/2022 13:03:30 Ultrasound BI-RADS: 1 Negative BI-RADS CATEGORY: (1) - 1 Unspecified - other recall n/a LATERALITY: (B)
== END 2022-11-21 07:54 | disposition home or self-care (01) ==
LOC: DI 07:53
PROVIDERS: ATTEND Nurse Practitioner
DX: N63.10 Unspecified lump in the right breast, unspecified quadrant (principal); N64.9 Disorder of breast, unspecified

== ENCOUNTER 2022-12-09 07:30 | Outpatient (CLI) | payer OTHER | END 2022-12-09 23:59 | disposition home or self-care (01) | LOC: LAB.S 07:30 | PROVIDERS: ATTEND Physician Assistant Medical | DX: J02.9 Acute pharyngitis, unspecified (principal) | CPT/HCPCS: 87070 ==

== ENCOUNTER 2022-12-24 08:00 | Outpatient (CLI) | payer OTHER ==
[2022-12-24 14:58] LABS: BASOPHILS % (AUTO) 0.5 %; EOSINOPHILS # (AUTO) 0.1 10^3/uL (0.0-0.7); EOSINOPHILS % (AUTO) 1.4 %; HCT - HEMATOCRIT 46.4 % (37.0-47.0); LYMPHOCYTES # (AUTO) 1.4 10^3/uL (1.5-3.5); LYMPHOCYTES % (AUTO) 19.1 %; MEAN CORPUSCULAR HEMOGLOBIN 29.2 pg (27.0-31.0); MEAN CORPUSCULAR HGB CONC 32.3 g/dL (32.0-36.0); MEAN CORPUSCULAR VOLUME 90.4 fL (81.0-99.0); MEAN PLATELET VOLUME 10.6 fL (7.9-10.8); MONOCYTES # (AUTO) 0.5 10^3/uL (0.0-1.0); MONOCYTES % (AUTO) 6.7 %; NEUTROPHILS # (AUTO) 5.3 10^3/uL (1.5-6.6); PLT - PLATELET COUNT 208 10^3/uL (130-450); RED BLOOD COUNT 5.13 10^6/uL (4.20-5.40); RED CELL DISTRIBUTION WIDTH 12.2 % (12.0-15.0); WHITE BLOOD COUNT 7.3 x10^3/uL (4.8-10.8)
[2022-12-24 15:09] LABS: INFECTIOUS MONONUCLEOSIS NEGATIVE (Negative)
[2022-12-24 15:20] LABS: ALBUMIN 4.2 g/dL (3.2-5.5); ALBUMIN/GLOBULIN RATIO 1.2 (1.0-2.2); BILIRUBIN,TOTAL 0.8 mg/dL (0.2-1.0); CALCIUM 9.3 mg/dL (8.5-10.3); CREATININE 0.7 mg/dL (0.4-1.0); POTASSIUM 4.1 mmol/L (3.5-5.0); TOTAL PROTEIN 7.7 g/dL (6.7-8.2)
[2022-12-24 16:24] LABS: B. PARAPERTUSSIS- RESP PCR PAN NOT DETECTED; B. PERTUSSIS- RESP PCR PANEL NOT DETECTED; C. PNEUMONIAE- RESP PCR PANEL NOT DETECTED; CORONAVIRUS 229E-RESP PCR NOT DETECTED; CORONAVIRUS HKU1-RESP PCR NOT DETECTED; CORONAVIRUS NL63-RESP PCR NOT DETECTED; CORONAVIRUS OC43-RESP PCR NOT DETECTED; HUMAN METAPNEUMOVIRUS NOT DETECTED; INFLUENZA A- RESP PCR PANEL NOT DETECTED; INFLUENZA B - RESP PCR PANEL NOT DETECTED; M. PNEUMONIAE- RESP PCR PANEL NOT DETECTED; PARAINFLUENZA VIRUS 1 NOT DETECTED; PARAINFLUENZA VIRUS 2 NOT DETECTED; PARAINFLUENZA VIRUS 3 NOT DETECTED; PARAINFLUENZA VIRUS 4 NOT DETECTED; RHINOVIRUS/ENTEROVIRUS NOT DETECTED; RSV- RESP PCR PANEL NOT DETECTED; SARS-CoV-2 -RESP PCR PANEL NOT DETECTED
[2022-12-26 05:10] LABS: HIV SCREEN 4TH GENERATION Non Reactive (Non Reactive)
== END 2022-12-24 23:59 | disposition home or self-care (01) ==
LOC: LAB.S 08:00
PROVIDERS: ATTEND Physician Assistant
DX: J02.9 Acute pharyngitis, unspecified (principal); B97.89 Other viral agents as the cause of diseases classified elsewhere; Z20.822 Contact with and (suspected) exposure to COVID-19
CPT/HCPCS: 36415; 80053; 85025; 86308; 87070; 87389; 87633

== ENCOUNTER 2023-02-05 17:33 | Outpatient (CLI) | payer OTHER ==
--- NOTE | 2023-02-05 18:13 | Ultrasound Report ---
PROCEDURE: OB First Trimester INDICATIONS: BLEEDING IN 1ST TRIMESTER OUTSIDE/PRIOR DATING DATA: Last menstrual period (LMP): 12/05/2022. LMP-based estimated date of delivery (ALBERTINA): 09/11/2023. First dating scan (date and location): 02/05/2023. Estimated date of delivery (ALBERTINA) from first dating scan: 09/09/2023. TECHNIQUE: Real-time scanning was performed of the fetus and maternal pelvic organs, with image documentation. COMPARISON: None FINDINGS: Embryo: Single live intrauterine is identified with crown-rump length measuring 2.4 cm cor responding to 9 weeks 1 day. Small subchorionic hemorrhage is present measuring 1.6 x 0.8 x 1.3 cm. Heart rate: 173 bpm. Measurement variability in dating: +/- 4 weeks by LMP, +/- 7 days by mean sac diameter (use before 6 weeks gestation if crown-rump length not able to be measured), +/- 5 days by crown-rump length (6-12 weeks gestation). Maternal organs: Ovaries demonstrate a left corpus luteal cyst. IMPRESSION: Single live intrauterine corresponding to 9 weeks 1 day. Small subchorionic hemorrhage. Recommend follow-up imaging at 20-22 weeks for dates and anatomy. Reviewed by: Angélica Billings MD on 02/05/2023 6:12 PM PDT Approved by: Angélica Billings MD on 02/05/2023 6:12 PM PDT Station ID: [id number]
== END 2023-02-05 17:34 | disposition home or self-care (01) ==
LOC: DI 17:33
PROVIDERS: ATTEND Nurse Practitioner Obstetrics & Gynecology
DX: O20.8 Other hemorrhage in early pregnancy (principal); Z3A.09 9 weeks gestation of pregnancy

== ENCOUNTER 2023-02-13 13:23 | Outpatient (CLI) | payer OTHER ==
[2023-02-13 19:31] LABS: BASOPHILS % (AUTO) 0.3 %; EOSINOPHILS # (AUTO) 0.1 10^3/uL (0.0-0.7); HCT - HEMATOCRIT 37.5 % (37.0-47.0); HGB - HEMOGLOBIN 12.5 g/dL (12.0-16.0); LYMPHOCYTES # (AUTO) 1.6 10^3/uL (1.5-3.5); LYMPHOCYTES % (AUTO) 25.6 %; MEAN CORPUSCULAR HEMOGLOBIN 30.6 pg (27.0-31.0); MEAN CORPUSCULAR HGB CONC 33.3 g/dL (32.0-36.0); MEAN CORPUSCULAR VOLUME 91.7 fL (81.0-99.0); MEAN PLATELET VOLUME 10.9 fL (7.9-10.8); MONOCYTES # (AUTO) 0.4 10^3/uL (0.0-1.0); MONOCYTES % (AUTO) 6.2 %; NEUTROPHILS # (AUTO) 4.1 10^3/uL (1.5-6.6); NEUTROPHILS % (AUTO) 66.6 %; PLT - PLATELET COUNT 162 10^3/uL (130-450); RED BLOOD COUNT 4.09 10^6/uL (4.20-5.40); RED CELL DISTRIBUTION WIDTH 12.6 % (12.0-15.0); WHITE BLOOD COUNT 6.2 x10^3/uL (4.8-10.8)
[2023-02-15 05:10] LABS: HCV AB Non Reactive (Non Reactive); HIV SCREEN 4TH GENERATION Non Reactive (Non Reactive); RPR Non Reactive (Non Reactive)
[2023-02-15 07:09] LABS: HBsAG SCREEN Negative (Negative)
[2023-02-15 08:09] LABS: VARICELLA-ZOSTER AB IGG 1181 index (Immune >165)
== END 2023-02-13 13:24 | disposition home or self-care (01) ==
LOC: LAB.S 13:23
PROVIDERS: ATTEND Nurse Practitioner Obstetrics & Gynecology
DX: Z36.89 Encounter for other specified antenatal screening (principal)
CPT/HCPCS: 36415; 85025; 86592; 86762; 86787; 86803; 86850; 86900; 86901; 87340; 87389

== ENCOUNTER 2023-06-06 11:41 | Outpatient (CLI) | payer OTHER ==
[2023-06-06 14:45] LABS: BASOPHILS % (AUTO) 0.3 %; EOSINOPHILS # (AUTO) 0.1 10^3/uL (0.0-0.7); EOSINOPHILS % (AUTO) 0.9 %; HCT - HEMATOCRIT 39.4 % (37.0-47.0); HGB - HEMOGLOBIN 12.9 g/dL (12.0-16.0); LYMPHOCYTES # (AUTO) 1.6 10^3/uL (1.5-3.5); LYMPHOCYTES % (AUTO) 18.7 %; MEAN CORPUSCULAR HEMOGLOBIN 31.2 pg (27.0-31.0); MEAN CORPUSCULAR HGB CONC 32.7 g/dL (32.0-36.0); MEAN CORPUSCULAR VOLUME 95.2 fL (81.0-99.0); MEAN PLATELET VOLUME 10.1 fL (7.9-10.8); MONOCYTES # (AUTO) 0.5 10^3/uL (0.0-1.0); MONOCYTES % (AUTO) 5.4 %; NEUTROPHILS # (AUTO) 6.4 10^3/uL (1.5-6.6); NEUTROPHILS % (AUTO) 74.4 %; PLT - PLATELET COUNT 138 10^3/uL (130-450); RED BLOOD COUNT 4.14 10^6/uL (4.20-5.40); RED CELL DISTRIBUTION WIDTH 12.7 % (12.0-15.0); WHITE BLOOD COUNT 8.6 x10^3/uL (4.8-10.8)
== END 2023-06-06 11:42 | disposition home or self-care (01) ==
LOC: LAB.S 11:41
PROVIDERS: ATTEND Nurse Practitioner Obstetrics & Gynecology
DX: Z36.9 Encounter for antenatal screening, unspecified (principal)
CPT/HCPCS: 36415; 82950; 85025

== ENCOUNTER 2023-09-08 15:50 | Outpatient (CLI) | payer OTHER ==
[2023-09-08 16:46] LABS: RUPTURE OF MEMBRANES PLUS NEGATIVE (NEGATIVE)
[2023-09-08 16:50] VITALS: BP 129/81
--- NOTE | 2023-09-08 17:17 | PROVIDER PROGRESS NOTE ---
- HPI Chief Complaint: Labor Check Current : Current EDU 09/11/23 Gestation 39 Weeks and 4 Days Vital Signs Temperature 37.0 C 09/08/23 16:06 Heart Rate 90 09/08/23 16:06 Respiratory Rate 18 09/08/23 16:06 Blood Pressure 129/81 H 09/08/23 16:06 Temperature 37.0 C 09/08/23 16:09 Heart Rate 90 09/08/23 16:06 Respiratory Rate 18 09/08/23 16:06 Blood Pressure 129/81 H 09/08/23 16:06 O2 Saturation If not protocol: Oxygen Flow, liters/minute - Procedures OB Procedure Performed: NST NST Procedure: NST Procedure Start Date 09/08/23 Start Time 16:00 Stop Time 16:33 Vibroacoustic Stimulation Used Yes Patient States Movement Yes - Plan Plan: Lynn presents today with her and son at 39.4wks gestation with concerns for spontaneous rupture of membranes. She states she feels like her water has not broken but she is nervous because of the increased vaginal discharge that is watery she has been experiencing. She denies vaginal bleeding. She reports inte rmittent [place] contractions but nothing consistent or very uncomfortable. She reports +FM. NST reactive FHR baseline 140s, moderate variability, + accels, no decels No contractions appreciated via tocometry ROM+: NEGATIVE SVE 5/80/-2, vertex. Plan: Pt released home with precautions. Pt has emergency contact number. F/u in the office on Friday for routine care or sooner PRN. FINAL DIAGNOSIS: Vaginal discharge
== END 2023-09-08 17:15 | disposition home or self-care (01) ==
LOC: WFO 15:50 → FBP 15:51 → WFO 17:15
PROVIDERS: ATTEND Nurse Practitioner Obstetrics & Gynecology
DX: O99.891 Other specified diseases and conditions complicating pregnancy (principal); N89.8 Other specified noninflammatory disorders of vagina; O47.1 False labor at or after 37 completed weeks of gestation; Z3A.39 39 weeks gestation of pregnancy
CPT/HCPCS: 59025; 84112; 99213

== ENCOUNTER 2023-09-09 05:47 | Inpatient (IN) | payer OTHER ==
[2023-09-09] MEDS ORDERED: fentaNYL 100 MCG/2 ML VIAL IVP PRN (05:51)
[2023-09-09] MEDS ORDERED: miSOPROStoL 200 MCG TABLET BC PRN (05:51)
[2023-09-09] MEDS ORDERED: LACTATED RINGERS 1,000 ML IV PRN (05:51)
[2023-09-09] MEDS ORDERED: LABETALOL 20 MG/4 ML SYRINGE IVP PRN ×4 (05:51→11:41)
[2023-09-09] MEDS ORDERED: lidocaine 1% 20 ML MDV ID PRN (05:51)
[2023-09-09] MEDS ORDERED: METHYLERGONOVINE 0.2 MG/ML VIAL IM PRN (05:51)
[2023-09-09] MEDS ORDERED: miSOPROStoL 200 MCG TABLET PR PRN (05:51)
[2023-09-09] MEDS ORDERED: TRANEXAMIC ACID IN NACL 1,000 MG/100 ML BAG IV PRN (05:51)
[2023-09-09] MEDS ORDERED: TERBUTALINE 1 MG/ML VIAL SUBQ PRN (05:51)
[2023-09-09] MEDS ORDERED: CARBOPROST TROMETHAMINE 250 MCG/ML AMP IM PRN (05:51)
[2023-09-09] MEDS ORDERED: SODIUM CHLORIDE FLUSH 0.9% 10 ML SYRINGE IVP PRN (05:51)
[2023-09-09] MEDS ORDERED: OXYTOCIN 10 UNIT/ML VIAL IM PRN (05:51)
[2023-09-09] MEDS ORDERED: OXYTOCIN/SODIUM CHLORIDE 500 ML IV PRN (05:51)
[2023-09-09] MEDS ORDERED: NIFEdipine 10 MG CAPSULE PO PRN (05:51)
[2023-09-09] MEDS ORDERED: AMPICILLIN 2 GM in SODIUM CHLORIDE 0.9% MINIBAG 100 ML IV ONE (05:51)
[2023-09-09] MEDS ORDERED: hydrALAZINE INJ 20 MG/ML VIAL IVP PRN ×2 (05:51)
[2023-09-09] MEDS ORDERED: LACTATED RINGERS 1,000 ML IV SCH (06:00)
[2023-09-09] MEDS ORDERED: SODIUM CHLORIDE FLUSH 0.9% 10 ML SYRINGE IVP SCH (06:00)
[2023-09-09 06:30] LABS: BASOPHILS % (AUTO) 0.3 %; EOSINOPHILS # (AUTO) 0.1 10^3/uL (0.0-0.7); EOSINOPHILS % (AUTO) 0.8 %; HGB - HEMOGLOBIN 14.3 g/dL (12.0-16.0); LYMPHOCYTES # (AUTO) 1.7 10^3/uL (1.5-3.5); LYMPHOCYTES % (AUTO) 19.4 %; MEAN CORPUSCULAR HEMOGLOBIN 30.9 pg (27.0-31.0); MEAN CORPUSCULAR VOLUME 90.7 fL (81.0-99.0); MEAN PLATELET VOLUME 10.8 fL (7.9-10.8); MONOCYTES # (AUTO) 0.6 10^3/uL (0.0-1.0); MONOCYTES % (AUTO) 6.9 %; NEUTROPHILS # (AUTO) 6.3 10^3/uL (1.5-6.6); NEUTROPHILS % (AUTO) 72.1 %; PLT - PLATELET COUNT 125 10^3/uL (130-450); RED BLOOD COUNT 4.63 10^6/uL (4.20-5.40); RED CELL DISTRIBUTION WIDTH 12.7 % (12.0-15.0); WHITE BLOOD COUNT 8.7 x10^3/uL (4.8-10.8)
--- NOTE | 2023-09-09 08:05 | HISTORY & PHYSICAL EXAMINATION ---
Admit History - Visit Reason Visit Reason: Contractions - : 3 Parity: 1 Premature: 0 Ectopic: 0 : 1 Care: positive: [facility] Risk/History: positive: None Complications This : positive: None Smoking Status: Never smoker - Mother's Labs Mother's Blood Type: positive: B Mother's RH: positive: Positive GBS: positive: Group B Strep Positive Rubella Status: positive: Immune - HPI Diagnosis/Indication for NST: Other Current [facility] 09/11/23 Gestation 39 Weeks and 5 Days 3 Vital Signs Temperature 36.8 C 09/09/23 07:28 Heart Rate 100 09/09/23 07:28 Respiratory Rate 18 09/09/23 07:28 Blood Pressure 120/77 09/09/23 07:28 Temperature 36.8 C 09/09/23 07:28 Heart Rate 100 09/09/23 07:28 Respiratory Rate 18 09/09/23 07:28 Blood Pressure 120/77 09/09/23 07:28 O2 Saturation If not protocol: Oxygen Flow, liters/minute - NST Procedure NST Procedure Start Time 16:00 Stop Time 16:33 - Results and Plan Findings/Impression: Labor NST: NST reactive. FHR baseline 140s, moderate variability, + accels, no decels Contractions palpate strong every 6-9 minutes with soft resting tone Meds/Allgy - Allergies Allergies/Adverse Reactions: Allergies Allergy/AdvReac Type Severity Reaction Status Date / Time No Known Drug Allergies Allergy Verified 03/11/19 15:33 Review of Systems - Constitutional Constitutional: denies: Fatigue, Fever, Chills - Eyes Eyes: denies: Blurred vision, Spots in vision, Dipolpia - Cardiovascular Cariovascular: denies: Irregular heart rate, Palpitations, Chest pain, Edema - Respiratory Respiratory: denies: Cough, Wheezing, SOB at rest - Gastrointestinal Gastrointestinal: denies: Abdominal pain, Constipation, Diarrhea, Nausea, Vomiting - Genitourinary Genitourinary: denies: Dysuria - Integumentary Integumentary: denies: Rash, Pruritis - Neurological Neurological: denies: Headache - Psychiatric Psychiatric: denies: Depression, Anxiety - Hematologic/Lymphatic Hematologic/Lymphatic: denies: Anemia Physical - Abdominal Exam Vital Signs: Temp Pulse Resp BP Pulse Ox O2 Flow Rate 36.8 C 100 18 120/77 09/09/23 07:28 09/09/23 07:28 09/09/23 07:28 09/09/23 07:28 Contraction Frequency (min/apart): 6-9 Contraction Intensity: positive: Strong Uterine Resting Tone: positive: Soft - Monitoring Heart Rate Baseline: 140 Strip Review: positive: Category I - Presentation Presentation: positive: Vertex - Vaginal Exam Membranes: positive: Membranes intact Dilation (in cm): 8 Effacement (%): 100 Station: positive: -1 Cervical Position: positive: Anterior - Speculum Exam Speculum Exam Performed: positive: No Plan for Labor - Plan For Labor I expect patient to be DC'd or transferred within 96 hours.: Yes Plan for Labor: Lynn is a 37yo @ 39.5wks gestation by LMP c/w 8.0wk U/S who presents to [facility] with c/o contractions. She was found to contract every 6-9 minutes with soft resting tone. FHR baseline category I pattern. She was noted to be GBS positive with a history of precipitous delivery and a strong desire to receive adequate treatment for Group B strep. SVe 8/100/-1 and vertex with intact membranes. She has been a patient of [facility] for the duration of her and has been co-managed with [facility]. She was diagnosed with Moderate ulcerative pancolitis/Crohn's disease in 2011. Hx of failure of Azathioprine monotherapy and mesalamine. She currently has an Rx for infliximab 8900mg every 8 weeks. She has also been followed by [facility] and is being seen once a trimester. She has been in remission x 1 year. She has a scheduled immunosuppressant infusion scheduled in 2 weeks and has tried to minimize immunosuppression for both herself and her baby. She has had a growth ultrasound monthly and the growth has been 76-91%tile. She has a history of macrosomia and 3rd degree laceration in addition to hemorrhage. She is advanced maternal age and had an [facility] consult with genetic counseling secondarily. Her NIPS was negative. In addition she is noted to have mild gestational thrombocytopenia however has remained stable throughout her third trimester. Her last platelet count was 122. She will be admitted to [facility] for expectant management. She is supported by her today. 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 TAB x 1 (2007), SAB x 0. Last pap 11/2021 WNL, no hx abnormal. Denies history of gonorrhea, chlamydia, genital herpes, oral herpes or any other STI. Sexual partner does NOT have HSV (oral or genital). Medical Hx: Crohn's disease Surgical Hx: hiatal hernia repair @ age 6; Coloscopy 04/2022. Social Hx: Monogamous with male partner. Stopped drinking alcohol due to . Denies current use of tobacco, marijuana or other recreational drugs. Reports that she is safe in current relationship. Family Hx: Denies family history of congenital anomalies, Cystic Fibrosis or chromosomal abnormalities. Allergies: NKDA Medications: PNV, Mg supplement, Infliximab 8900mg q 8wks course: B positive, antibody negative Rubella immune; varicella immune Hep B neg, Hep C negative NIPS - negative Initial U/S @ 8.0wks gestation c/w LMP dating SLIUP @ 21.3wks gestation. Normal growth (EFW 79%tile). All biometries are WNL. Complete FAS, no abnormalities found. Normal AMBREEN. Posterior placenta, no previa. 3VC. Normal cervical length, no funneling seen. 1hr GTT 125 GBS POSITIVE Assessment: 37yo @ 39.5wks gestation by LMP c/w 8.0wk U/S Active labor GBS positive FHR Category I Plan: Admit to [facility] for expectant management. Initiate Ampicillin for GBS prophylaxis per protocol. Intermittent heart rate auscultation. Jacuzzi PRN. Nitrous oxide PRN. Epidural per maternal request.
[2023-09-09] MEDS ORDERED: MINERAL OIL LIGHT 10 ML MC ONE (08:16)
[2023-09-09] MEDS ORDERED: AMPICILLIN 1 GM in SODIUM CHLORIDE 0.9% MINIBAG 100 ML IV SCH (10:00)
--- NOTE | 2023-09-09 10:32 | DELIVERY NOTE ---
Delivery Note - Labor Labor: positive: Spontaneous - Delivery Method Delivery Method: positive: Spontaneous vaginal delivery - Presentation Presentation: positive: Vertex, MARINA - left occiput anterior - Nuchal Cord Nuchal Cord: positive: None - Amniotic Fluid Description Amniotic Fluid Description: positive: Clear - Episiotomy Type Episiotomy Type: positive: None - Laceration Laceration: positive: 1st degree, Perineal - Suture Suture Type: positive: Vicryl Suture Size: positive: 2-0 - Delivery Outcome Delivery Outcome: positive: Livebirth - [place] : positive: Placed in direct skin contact with mother, Bulb syringe, Stimulated, Warmed, [place] used [place] sex: positive: Female - Cord Cord: positive: 3 vessels - Placenta Placenta: positive: Intact, Spontaneous - Estimated Blood Loss Estimated Blood Loss (in cc): 450 - Post Delivery Events Post Delivery Events: positive: No post delivery events - Delivery Comments (Free Text/Narrative) Delivery Comments (Free Text/Narrative): Labor: This 37yo @ 39.5wks gestation by LMP c/w 8.0wk U/S presented to [facility] with c/o contractions. She was found to contract every 6-9 minutes with soft resting tone. SVE 8/100/-2 and vertex with intact membranes. FHR pattern demonstrated a Category I pattern on admission NST and further monitoring was done intermittently with heart rate doppler and remained reassuring. Normal labor course. Pt progressed to c/c/+1 @ 0856 with onset of pushing spontaneously. SROM occurred at 0930 and was noted to be a moderate amount of clear fluid. : Normal SVB of viable female on 09/09/2023 @ 0914. No nuchal cord. The was placed on maternal abdomen, stimulated, dried, and placed skin to skin. 's were 9/9 at 1 and 5 minutes respectively. Patient declined pitocin administration initially for active management of the third stage. The umbilical cord was allowed to stop pulsating at which time it was doubly clamped by CNM and cut by FOB. 3VC. Cord blood was obtained. Fundal massage and gentle cord traction applied for active management of the third stage. Placenta delivered spontaneously and intact at 0920. EBL 450mL. Fourth stage: Uterine fundus firm and there is no excessive bleeding. The perineum, vagina, and cervix were inspected and found to have 1st degree perineal laceration which was repaired using a 2-[address]-1 needle, in standard fashion and under sterile conditions. Vaginal examination following repair was done. Tissues well approximated. initiated. Family bonding well. Both mother and baby were left in stable condition.
[2023-09-09] MEDS: ACETAMINOPHEN 500 MG TABLET PO SCH ×2 (12:47→13:30)
[2023-09-09] MEDS: IBUPROFEN 600 MG TABLET PO SCH ×2 (14:34→20:43)
[2023-09-09] MEDS ORDERED: SUCCINYLCHOLINE 200 MG/10 ML VIAL ONE (20:32)
[2023-09-09] MEDS: DOCUSATE SODIUM 100 MG CAPSULE PO SCH (20:43)
[2023-09-10] MEDS: IBUPROFEN 600 MG TABLET PO SCH ×3 (02:47→15:23)
[2023-09-10 05:18] VITALS: O2SAT 98
[2023-09-10] MEDS: DOCUSATE SODIUM 100 MG CAPSULE PO SCH (09:07)
[2023-09-10 09:46] VITALS: BP 117/73
--- NOTE | 2023-09-10 10:42 | Discharge Plan ---
Discharge Plan Problem Reviewed?: Yes Disposition: Home, Self Care Condition: Good Diet: Regular Activity Restrictions: No Restrictions Shower Restrictions: No Driving Restrictions: No Weight Bearing: Full Weight Instruction Topics: Vaginal After No Smoking: If you smoke, Please STOP! Call for help. Follow-up with: Paige Spann CNM, ARNP [Provider Admit Priv/Credential] - 1 Week (1 week phone call September 16 @ 12:15pm)
--- NOTE | 2023-09-10 10:55 | DISCHARGE SUMMARY ---
Discharge Summary Condition at Discharge: Good Discharge Disposition: 01 Home, Self Care - HOSPITAL COURSE Hospital Course: Date of Admission: 09/09/2023 Date of Discharge: 09/10/2023 Diagnosis on Admission: 1. 37yo @ 39.5wks gestation by LMP c/w 8.0wk U/S 2. Active labor 3. GBS positive 4. FHR Category I Diagnosis on Discharge: 1. 37yo PPD#1 s/p TSVB viable female infant 2. 3. Normal recovery Brief History: She is a patient of [facility] who presented on 09/09/2023 in active labor Cervix was 8/100/-1 and vertex with intact membranes. FHR demonstrated a Category I pattern throughout labor. She progressed to spontaneously deliver a viable female infant on 09/09/2023 @ 0914 following an 18 minute second stage. Apgars were 9/9 at 1 and 5 minutes respectively. EBL 450mL. Perineum was noted to have a 1st degree laceration which was repaired using a 2-[address]-1 needle in standard fashion and under sterile conditions. She was noted to have increased bleeding and pitocin was initiated via IV in addition to BC misoprostol 800mcg after patient had initially declined active management of the third stage of labor. Secondary to persistent moderate vaginal bleeding a vaginal examination was done and a small superficial left labial laceration was repaired with silver nitrate. She has been doing well in her course. She is ambulating and tolerating a regular diet. She is urinating without difficulty and her lochia is normal. Her pain is well controlled with oral medications. She is without difficulty and she is bonding well with her baby. She will be discharged home today on day #1 with instructions to continue taking her vitamin while and to continue taking ibuprofen and tylenol over the counter as needed for pain management. She intends to follow up with myself at [facility] in 1 week for routine care or sooner if needed. She has been given precautions to call if she has any worsening fevers, chills, abdominal pain, increased vaginal bleeding or foul smelling vaginal lochia. Physical exam: Normocephalic, atraumatic. Heart RRR w/o M/G/R, lungs CTAB, abdomen soft and nontender with fundus firm at U, bilateral LE's trace edema. Mood is good. - ALLERGIES Allergies/Adverse Reactions: Allergies Allergy/AdvReac Type Severity Reaction Status Date / Time No Known Drug Allergies Allergy Verified 03/11/19 15:33 - LABS Result Diagrams: 09/09/23 06:10
[2023-09-10] MEDS: ACETAMINOPHEN 500 MG TABLET PO SCH (12:52)
--- NOTE | 2023-09-10 17:45 | Labor Flowsheet ---
Labor Flowsheet Datetime Report Generated by CPN: 09/10/2023 17:45 Datetime: 09/10/2023 09:37 VITAL SIGNS NBP Sys/Jenny/Mean (mmHg): 117 : 73 : 84 Pulse: 103 COMMUNICATION LaborFlag: Labor Datetime: 09/09/2023 11:28 SpO2 (%): 100 Datetime: 09/09/2023 09:03 Membranes Ruptured Date/Time: 09/09/2023 09:03 Membranes Rupture Method: Spontaneous Amniotic Fluid Color: Clear Datetime: 09/09/2023 08:56 VAGINAL EXAM Dilatation (cm): 10.0 Effacement (%): 100 Datetime: 09/09/2023 07:30 Station: 1 Exam by: A. Zana CNM, STRATEGIC PLANNING MANAGER Membrane Status: Intact Datetime: 09/09/2023 07:05 Patient Care Comments: RN to RN report; RN Putnam assuming care. Datetime: 09/09/2023 06:50 ASSESSMENT A Monitor Mode: Telemetry FHR Baseline Rate : 120 FHR Baseline Changes: No Baseline Change Variability: Moderate 6-25 bpm Accelerations: 15X15 Decelerations: None Category: Category I Comments: intermittent EFM, off to go onto birthing ball/jacuzzi use Oxygen Method: Room Air Comfort Measures: Up on birthing ball; Efren at pt's side Datetime: 09/09/2023 06:34 PAIN Pain Scale: 6 Pain Presence: Intermittent Pain Type: Cramping; Contraction Pain Location: Abdomen; Back; Right Groin; Left Groin Pain Goal: 10 Pain Relief Measures: Comfort Measures Pain Coping: Breathing Through Contractions; Declines Medication or Epidural Pain Assessment Comments: prefers unmedicated MATERNAL ASSESSMENT Level of Consciousness: Alert DTR's/Clonus: DTRs 1+; No Clonus Headache: Denies Breath Sounds, Left: Clear and Equal Breath Sounds, Right: Clear and Equal Nausea/Vomiting: Denies RUQ Epigastric Pain: Denies TEACHING Instructional Method: Verbal; Patient Instructed; Family/Support Person Instructed; Verbalized Unde rstanding Plan of Care: Plan of Care Discussed; Vaginal Delivery; Labor Unit Routine: [place] to Room; Call Matthews; Bed; Visiting Policy; Waiting Areas; Infant Security; Phon e/Cell Phone Use; Photography; Unit Personnel; Handwashing; Flu/Illness Precautions; Monitoring ; IV Pumps; Safety/Fall Risk Prevention; Diet/Nutrition Services; Bathroom Privileges; Routine Time O uts; Medications Labor/Induction: Labor Stages; Antibiotic Use; Activity Pain Management: Pain Scale/Goals; Comfort Measures Medications: Antibiotics Datetime: 09/09/2023 06:20 MEDICATIONS Antibiotics: Ampicillin IV 2 Gm Datetime: 09/09/2023 06:10 PATIENT CARE IV/Blood Work: IV Started; Labs Drawn with IV Start; IV Infusing per Order; IV Bag Number @ 1 Datetime: 09/09/2023 06:09 UTERINE ACTIVITY Monitor Mode: External Frequency (min): 4-5 Quality: Moderate Duration (sec): 60 Pattern: Normal: <= 5 Contractions in 10 Minutes Resting Tone (Palpate): Relaxed Datetime: 09/09/2023 06:07 Respirations: 18 Temperature (C): 36.7 Temperature Route: Oral Datetime: 09/09/2023 05:50 Stage of : Labor
== END 2023-09-10 15:30 | disposition home or self-care (01) | DRG 806 ==
LOC: FBP 05:47
PROVIDERS: ADMIT Nurse Practitioner Obstetrics & Gynecology; ATTEND Nurse Practitioner Obstetrics & Gynecology
PROC: 0HQ9XZZ Repair Perineum Skin, External Approach (ICD-10-PCS; principal; 2023-09-09)
PROC: 10E0XZZ Delivery of Products of Conception, External Approach (ICD-10-PCS; 2023-09-09)
DX: O99.824 Streptococcus B carrier state complicating childbirth (principal); K50.90 Crohn's disease, unspecified, without complications; Z37.0 Single live birth; O70.0 First degree perineal laceration during delivery; O99.12 Other diseases of the blood and blood-forming organs and certain disorders involving the immune mechanism complicating childbirth; Z3A.39 39 weeks gestation of pregnancy; D69.6 Thrombocytopenia, unspecified; O99.62 Diseases of the digestive system complicating childbirth
CPT/HCPCS: 59409; 85025; 86850; 86900; 86901; 86920; A9270; J2210; J7120; 84443

== ENCOUNTER 2024-03-23 09:37 | Outpatient (CLI) | payer OTHER ==
[2024-03-24 06:11] LABS: HEPATITIS B CORE IGM AB Negative (Negative)
[2024-03-24 12:09] LABS: MEASLES ANTIBODIES IGG >300.0 AU/mL (Immune >16.4)
== END 2024-03-23 09:38 | disposition home or self-care (01) ==
LOC: LAB.S 09:37
PROVIDERS: ATTEND Registered Nurse
DX: D84.9 Immunodeficiency, unspecified (principal)
CPT/HCPCS: 36415; 81599; 86704; 86705; 86765; 86803

== ENCOUNTER 2024-08-02 14:29 | Outpatient (CLI) | payer OTHER | END 2024-08-02 14:30 | disposition home or self-care (01) | LOC: LAB.S 14:29 | PROVIDERS: ATTEND Registered Nurse | DX: H60.92 Unspecified otitis externa, left ear (principal) | CPT/HCPCS: 81599; 87070; 87205 ==